=== PATIENT | male | born 1955 | race Caucasian/White ===

== ENCOUNTER 2021-02-12 15:28 | Emergency (ER) | payer MEDICARE ==
[~2021-02-12] VITALS: Ht 175.3 cm; Wt 75.0 kg
[~2021-02-12 15:28] MED LIST: ASPI325T11 PO; ATOR20TA58 PO; CLOP75TA PO; INSU100V35 SQ; INSU100V8 SQ; LISI5TAB15 PO; METO-239 PO; NITR0.4T24 SL
[2021-02-12 16:47] VITALS: BP 129/67
[2021-02-12] MEDS ORDERED: KETOROLAC 60 MG/2 ML VIAL. IM ONE (17:15)
--- NOTE | 2021-02-12 17:18 | PHYS DOC ---
Past Medical History Past Surgical History: No Surgical History (DOUGLAS GROSS APRN) Smoking Status: Never Smoker Alcohol Use: None (DOUGLAS GROSS APRN) General Adult EDM: Chief Complaint: DENTAL PROBLEM HPI: HPI: Patient is a 65-year-old male presents emergency department complaining of swelling to his left jaw area for the past week. Patient reported this past Tuesday he noticed a little swelling that has progressively gotten worse, more pa inful to touch, difficult to chew, denies problems opening or closing his mouth, denies facial tongue numbness or tingling, denies difficulty swallowing, denies throat discomfort, denies recent fever or chills, denies chest pains or shortness of breath, denies nasal or chest congestion. Patient denies other physical complaints or physical concerns. (DOUGLAS GROSS APRN) Review of Systems: Review of Systems: 14 body systems of review of systems have been reviewed. See HPI for pertinent positives and negative responses, otherwise all other systems are negative, nonpertinent or noncontributory. Constitutional: Negative except as outlined in HPI above. Skin: Negative except as outlined in HPI above. Eyes: Negative except as outlined in HPI above. HENT: Negative except as outlined in HPI above. Respiratory: Negative except as outlined in HPI above. Cardiovascular: Negative except as outlined in HPI above. GI: Negative except as outlined in HPI above. : Negative except as outlined in HPI above. Musculoskeletal: Negative except as outlined in HPI above. Integument: Negative except as outlined in HPI above. Neurologic: Negative except as outlined in HPI above. Endocrine: Negative except as outlined in HPI above. Lymphatic: Negative except as outlined in HPI above. Psychiatric: Negative except as outlined in HPI above. (DOUGLAS GROSS APRN) Heart Score: C/O Chest Pain: No Risk Factors: Risk Factors: DM, Current or recent (<one month) smoker, HTN, HLP, family history of CAD, obesity. Risk Scores: Score 0 - 3: 2.5% MACE over next 6 weeks - Discharge Home Score 4 - 6: 20.3% MACE over next 6 weeks - Admit for Clinical Observation Score 7 - 10: 72.7% MACE over next 6 weeks - Early Invasive Strategies (DOUGLAS GROSS APRN) Allergies: Allergies: Allergies Coded Allergies Type Severity Reaction Last Updated Verified No Known Drug Allergies 02/12/21 No (DOUGLAS GROSS APRN) Physical Exam: PE: Constitutional: Well developed, well nourished, no acute distress, non-toxic appearance. 65-year-old male in no apparent distress. HENT: Normocephalic, atraumatic. Swelling of the left parotid gland, poor dentition, multiple missing teeth, no swelling of gum or abscess appreciated, no other lymphadenopathy of the head or neck appreciated, there is no drooling, no trismus, no malocclusion, patient speaking in normal voice tones. Eyes: Conjunctiva normal, no discharge. Neck: Normal range of motion, no stridor. Cardiovascular: No cyanosis appreciated, distal cap refill less than 2 seconds. Lungs & Thorax: Patient is in no respiratory distress, no audible adventitious lung sounds appreciated. Abdomen: Nontender, no abnormalities noted. Skin: Warm, dry, no erythema, no rash. Back: No tenderness, no deformities. Extremities: No tenderness, no cyanosis, no clubbing, ROM intact, no edema. Neurologic: Alert and oriented X 3, normal motor function, normal sensory function, no focal deficits noted. Psychologic: Affect normal, judgement normal, mood normal. (DOUGLAS GROSS APRN) Current Patient Data: Vital Signs: Vital Signs Date Time Temp Pulse Resp B/P (MAP) Pulse Ox O2 Delivery O2 Flow Rate FiO2 02/12/21 16:47 98.7 66 16 129/67 (87) 98 98.7 (DOUGLAS GROSS APRN) EKG: EKG: [] (DOUGLAS GROSS APRN) Radiology/Procedures: Radiology/Procedures: [] (DOUGLAS GROSS APRN) Course & Med Decision Making: Course & Med Decision Making Pertinent Labs and Imaging studies reviewed. (See chart for details) 65-year-old male, vital signs reviewed, presents emerged from concerning swelling of the left lower jaw area. Physical examination consistent with parotitis, discussed with patient will give IM injection of Toradol for complaint of pain of 5 out of 10, discussed with patient applying warm moist compresses 30 minutes on 30 minutes off while awake over the next 4872 hours, use of sour lozenges to induce salivation, NSAID therapy for pain, strict follow-up with dentist this week, patient reports he has a appointment this coming Tuesday. Discussed return to ER precautions or concerns, patient gave verbal understanding of and is amenable to ED discharge planning. Discussed with the patient all findings and diagnostic testing as well as the need to follow-up with their primary care provider for further evaluation and treatment or return to the ED if any new or worsening symptoms. Strict return precautions were also discussed at length, the patient voiced understanding and agreement with the discharge planning. The patient was nontoxic in appearance, in no apparent distress, and hemodynamically stable at the time of disposition. (DOUGLAS GROSS APRN) Dragon Disclaimer: Dragon Disclaimer: This electronic medical record was generated, in whole or in part, using a voice recognition dictation system. (DOUGLAS GROSS APRN) Departure Departure Impression: Primary Impression: Parotitis Disposition: HOME / SELF CARE / HOMELESS Condition: GOOD Referrals: SOURAV WINTERS MD (PCP) Patient Instructions: Parotitis Additional Instructions: You are seen in the emergency department today for swelling of your left jaw. Your physical examination is concerning for parotitis. This is an inflammation of your parotid gland, this can sometimes be caused by small obstructions that w ill not allow the salivary fluid to flow into your oral cavity, this can also be caused by a viral infection. It is important that you see a dentist soon, this is a must. You may treat the symptoms with NSAID therapy such as Naprosyn or ibuprofen, if caused by small obstructions, use sour candies to induce salivation as this sometimes helps push the obstruction through relieving the swelling and discomfort. Use warm moist compresses to your painful jaw area 30 minutes on and 30 minutes off while awake for the next 48 to 72 hours. Return to the emergency department for difficulty swallowing, difficulty breathing, worsening symptoms or other concerns. Thank you for visiting our Emergency Department. It was a pleasure taking care of you today in the emergency department and we appreciate you trusting us with your care. If any additional problems come up don't hesitate to return to visit us. Please follow up with your primary care provider so they can plan additional care if needed and know about the problem that you had. If symptoms worsen come back to the Emergency Department. Any concerning symptoms that start such as chest pain, shortness of air, weakness or numbness on one side of the body, running high fevers or any other concerning symptoms return to the ER. Attending Signature I have participated in the care of this patient and I have reviewed and agree w ith all pertinent clinical information above including history, exam, and recommendations. (GORDO BUTT DO) DOUGLAS GROSS APRN Feb 12, 2021 17:18 GORDO BUTT DO Feb 12, 2021 17:46
== END 2021-02-12 17:36 | disposition home or self-care (01) ==
LOC: ER 15:28
DX: K11.20 Sialoadenitis, unspecified (principal)
CPT/HCPCS: 96372; 99283; J1885